=== PATIENT | male | born 1990 ===

== ENCOUNTER 2021-05-03 09:48 | Outpatient (CLI) | payer SELFPAY ==
--- NOTE | 2021-05-03 08:45 | DI.RAD_ITS ---
Exam(s) XR KNEE LT 4V AP,LAT,EDDIE,PAT XR KNEE RT 3V AP,LAT,EDDIE EXAM: XR KNEE RT 3V AP,LAT,EDDIE CLINICAL HISTORY: pain in knee. TECHNIQUE: 2D digital imaging was performed. COMPARISON: CR XR KNEE LT 4V AP,LAT,EDDIE,PAT from 05/03/2021 FINDINGS: BONES: No acute fracture is present. No bony destructive lesion is seen. No visible degenerative ch anges. JOINTS: The patellofemoral joints are normally aligned. No joint effusion is seen. SOFT TISSUE: Normal. IMPRESSION: Unremarkable radiographs of the right knee. Unremarkable patellofemoral joints. DATA REPOSITORY: RADIATION DOSE DELIVERED:
== END 2021-05-03 09:49 | disposition home or self-care (01) ==
LOC: DIORS 09:48
PROVIDERS: Visit Provider Physician Assistant Surgical
DX: M25.561 Pain in right knee (principal); M25.562 Pain in left knee
CPT/HCPCS: 73562; 73564